=== PATIENT | female | born 1955 | race Caucasian/White ===

== ENCOUNTER → 2023-08-29 | Outpatient (REF) | payer BC, MEDICARE, SELFPAY | LOC: DHSLP | PROVIDERS: ATTENDING PHYSICIAN Internal Medicine Critical Care Medicine; FAMILY PHYSICIAN Family Medicine | DX: G47.61 Periodic limb movement disorder (principal); R06.83 Snoring | CPT/HCPCS: 95810 ==

== ENCOUNTER → 2023-09-01 10:45 | Outpatient (REF) | payer BC, MEDICARE, SELFPAY | LOC: DHCBC/DCA 10:45 | PROVIDERS: ATTENDING PHYSICIAN Internal Medicine Cardiovascular Disease; FAMILY PHYSICIAN Family Medicine | DX: R00.2 Palpitations (principal); R06.02 Shortness of breath; I50.32 Chronic diastolic (congestive) heart failure | CPT/HCPCS: 78452; 93017; A9500; J2785 ==

== ENCOUNTER 2023-10-04 22:39 | Inpatient (IN) | payer BC, MEDICARE, SELFPAY ==
[2023-10-04] VITALS (7 sets, daily range): BP systolic 109–143; BP diastolic 69–81; PULSE 89–92; BMI 33.9; BMI 33.2
--- NOTE | 2023-10-04 18:44 | ED.GENMED ---
History of Present Illness
General
Chief Complaint: Cold/Flu/URI Symptoms
Source: patient
Exam Limitations: none
Time Seen by Provider: 10/04/23 18:11
Nursing documentation reviewed up to this point in time: agreed with
Travel History
Have you had any contact with someone who has COVID-19?: No
Do you have any symptoms of coronavirus? Fever > 100 degrees, chills, cough, shortness of breath, sore throat, loss of taste or smell, muscle aches, or headache?: Yes
Symptoms:: cough
History of Present Illness
History of Present Illness:
68-year-old female with past medical history of CHF hypertension hyperlipidemia, asthma, GERD, remote history of PE not currently anticoagulated for multiple decades. Presented to the emergency department with what initially seemed to be a viral
syndrome 10 days ago with ongoing cough shortness of breath wheezing generalized weakness fatigue body aches. Has had some chest tightness. Denies fevers. Has had some leg swelling bilaterally but always has leg swelling. Has been taking her
diuretic but has had decreased urine output.
Past History
Past History
ED Past Medical History: Arrthythmia (SVT), Asthma, CHF, COPD, GERD, HTN, Hypercholesterolemia, Hypothyroidism, Psychiatric (Anxiety, Depression) and Other (RA,PE, chronic pain syndrome-narcotic dependent. Osteoarthritis. PNA, Sleep apnea, Co2
retention, Urinary retention, PNA)
ED Past Surgical History: Cardiac (Cardiac ablation X 3), , Orthopedic (Right and left total knee replacement, ), Urological (Bladder lift) and Other (bladder lift)
Social History
Tobacco: Former smoker
Alcohol: None
Personal:
Living: with family
Employment: Disabled
Family History
Family History: Other (Noncontributory)
Review of Systems
Review of Systems
Allergies reviewed?: Yes
All Other Systems: ROS reviewed and negative except as documented in HPI and ROS
Phy Exam
Physical Exam
Physical Exam:
GENERAL: Alert , in no apparent distress
EYE: pupils equal and reactive
NECK: Supple, no significant adenopathy.
ENT: o/p clr, mmm.
CARDIAC: Regular rate and rhythm .
LUNGS: Inspiratory and expiratory wheezing diffusely
ABDOMEN: Soft, without focal tenderness, no r/g, no cvat
NEUROLOGICAL: Alert and oriented, no focal neuro deficits
SKIN: Warm and dry, skin intact.
MUSCULOSKELETAL: No edema, well perfused.
PSYCH: Normal and appropriate interaction.
Course
Orders/Labs/Results
Orders:
Orders
10/04/23 18:44
Cardiac Monitoring- Treatment ONCE
Dexamethasone Sod Phosphate [Decadron] 10 mg IV NOW STA
Ipratropium/Albuterol Sulfate [Duoneb] 3 ml INH R NOW STA
10/04/23 18:45
Electrocardiogram (*1) Stat
Reason for Study: Other
Other Reason for Exam: pneumonia
EKG- Treatment ONCE
CR Chest - 2 Views Urgent
Comment:
Reason For Exam: cp cough
10/04/23 18:49
Complete Blood Count/With Diff Urgent
Comprehensive Metabolic Panel Urgent
Creatine Phosphokinase Urgent
Comment: ADD ON
NT-proBNP Urgent
Troponin I Urgent
10/04/23 19:01
Add On- LAB Urgent
Tests Added?: creatine kinase
10/04/23 20:44
Ipratropium/Albuterol Sulfate [Duoneb] 3 ml INH R NOW ONE
10/04/23 21:39
COVID-19 Antigen Urgent
Source: Nasal Swab
Influenza A+B Rapid Molecular Urgent
DOM Source: Nasal Swab
Specimen Description:
Abnormal Lab Results
10/04/23
18:49
RBC 3.52 L 10^6/uL
(4.20-5.40)
Hgb 10.4 L g/dL
(12.0-16.0)
Hct 29.6 L %
(37.0-47.0)
Abs Immat Gran (auto) 0.1 H 10^3/uL
(0-0.05)
Absolute Monos (auto) 0.9 H 10^3/uL
(0.1-0.6)
Immature Gran % 1.3 H %
(0-0.5)
Monocytes % 10.7 H %
(1.7-9.3)
Sodium 128 L mmol/L
(135-145)
Carbon Dioxide 21 L mmol/L
(22-30)
Calcium 7.5 L mg/dl
(8.4-10.2)
Total Protein 5.0 L g/dl
(6.3-8.2)
Albumin 2.6 L g/dl
(3.5-5.0)
10/04/23 18:49
10/04/23 18:49
Vital Signs
Initial and Last Documented VS:
Initial Vital Signs
Pulse Resp BP Pulse Ox
79 20 112/81 98
10/04/23 17:57 10/04/23 17:57 10/04/23 17:57 10/04/23 17:57
Last Documented Vital Signs
Pulse Resp BP Pulse Ox
73 24 125/73 94
10/04/23 21:00 10/04/23 21:00 10/04/23 21:00 10/04/23 20:45
MDM/Problems Addressed
MDM/Problems Addressed:
68-year-old female presenting to the emergency department today with concerns of cough shortness of breath weakness generalized fatigue body aches over the past 10 days. Here she has diffuse wheezing vital signs otherwise are normal afebrile normal
blood pressure and pulse ox. Plan for additional evaluation considering her history of heart disease as well. Given steroids and DuoNeb. Patient reassessed claims that she feels slightly better she was walked pulse ox dropping into the 80s
patient appeared very short of breath pulse ox improving to the mid 90s on room air thereafter. Otherwise troponin is normal EKG unchanged BMP without significant elevation symptoms appear most consistent with likely reactive airway asthma to what
appears to be likely URI 10 days ago. Plan to admit due to hypoxemia.
*Critical Care Note
Total Time (30-74mins, 75-104mins- exclusive of procedures): Not Applicable
ED Attending Note
-
Portions of this chart may have been created with voice recognition software.� Occasional wrong word or��sound alike� substitutions may have occurred due to the inherent limitations of voice recognition software.
Discharge Plan
Departure
Patient Disposition: Admit
Date of Disposition: 10/04/23
Time of Disposition: 21:54
Admit to: Med/Surg
Admit to doctor: Jovany
Presentation/result/management discussed w/ accepting MD/DO: Hospitalist
Patient with high blood pressure during this ER visit?: No
Condition: Good
Covid-19: Not Applicable
Discharge Problem:
Asthma, Hypoxemia
Prescriptions:
No Action
aspirin 325 MG tablet,delayed release (DR/EC)
325 mg PO DAILY Qty: 0 0RF
duloxetine 60 MG capsule,delayed release(DR/EC)
60 mg PO BID
quetiapine [Seroquel XR] 400 MG tablet extended release 24 hr
400 mg PO HS
lovastatin 20 MG tablet
20 mg PO DAILY
pantoprazole 40 MG tablet,delayed release (DR/EC)
40 mg PO DAILY
clonazepam 1 MG tablet
1 mg PO QID
Patient Comments:
06/06/2023: last filled 04/28/23, 120 tabs for 30 days from [facility]
benzonatate 200 mg capsule
200 mg PO TIDPRN PRN (Reason: cough)
levothyroxine 125 mcg tablet
125 mcg PO DAILY AT 0700
metoprolol tartrate 50 mg tablet
25 mg PO BID
levalbuterol HCl 1.25 mg/3 mL Solution For Nebulization
1.25 mg INHALATION R Q8HPRN PRN (Reason: sob/wheezing)
levalbuterol tartrate [Xopenex HFA] 45 mcg/actuation Hfa Aerosol Inhaler
2 inh INHALATION R Q8HPRN PRN (Reason: sob/wheezing)
budesonide-formoterol [Symbicort] 160-4.5 mcg/actuation HFA aerosol inhaler
2 puff INHALATION R BID
Xtampza ER 36 mg cap,sprinkl,ER12hr(DONT CRUSH)
72 mg PO BID@
Patient Comments:
06/06/2023: last filled 05/16/23, 120 tabs for 30 days from [facility]
tamsulosin 0.4 mg Capsule
0.4 mg PO DAILY Qty: 30 0RF
furosemide 20 mg Tablet
20 mg PO DAILY Qty: 30 0RF
amoxicillin-pot clavulanate 875-125 mg Tablet
1 tab PO Q12 Qty: 5 0RF
prednisone 20 mg tablet
40 mg PO DAILY Qty: 6 0RF
potassium chloride 20 mEq tablet extended release
20 meq PO DAILY Qty: 10 0RF
cephalexin 500 mg tablet
500 mg PO Q8H 5 Days Qty: 15 0RF
tamsulosin [Flomax] 0.4 mg capsule
0.4 mg PO HS Qty: 30 0RF
potassium chloride 20 mEq packet
20 meq PO DAILY Qty: 10 0RF
Referrals:
Demi Ramirez MD [Family Provider] -
Interventions
Interventions:
*General Assessment Last Done: 10/04/23 18:58
*Neglect/Abuse Screening Last Done: 10/04/23 18:58
ED- Fall Risk Assessment Last Done: 10/04/23 19:00
*ED COVID-19 Vaccine History Last Done: 10/04/23 18:58
ED- Pulmonary Assessment Last Done: 10/04/23 19:00
[2023-10-04] MEDS: DECADRON 10 MG IV (18:52)
[2023-10-04] MEDS: DUONEB 3 ML INH ×2 (18:52→20:49)
[2023-10-04 19:01] LABS: % Basophils 0.2 % (0-2); % Immature Granulocytes 1.3 % (0-0.5); % Lymphocytes 34.7 % (20.5-51.1); % Monocytes 10.7 % (1.7-9.3); % Neutrophils 51.1 % (42.2-75.2); Absolute Eosinophils 0.2 10^3/uL (0-0.7); Absolute Immature Granulocytes 0.1 10^3/uL (0-0.05); Absolute Lymphocytes 2.8 10^3/uL (1.2-3.4); Absolute Monocytes 0.9 10^3/uL (0.1-0.6); Absolute Neutrophils 4.2 10^3/uL (1.4-6.5); Hematocrit 29.6 % (37.0-47.0); Hemoglobin 10.4 g/dL (12.0-16.0); Mean Corp Hgb Conc. 35.1 g/dL (33.0-37.0); Mean Corpuscular Hgb 29.5 pg (27.0-31.0); Mean Corpuscular Volume 84.1 fL (81.0-99.0); Mean Platelet Volume 9.4 fL (7.4-10.4); Nucleated Red Blood Cells % 0 %; Platelet Count 216 10^3/uL (130-400); Red Blood Cell Count 3.52 10^6/uL (4.20-5.40); Red Cell Dist. Width 13.7 % (11.5-14.5); White Blood Cell Count 8.2 10^3/uL (4.8-10.8)
[2023-10-04 19:14] LABS: ALT (SGPT) 12 U/L (0-35); AST (SGOT) 14 U/L (14-36); Albumin 2.6 g/dl (3.5-5.0); Alkaline Phosphatase 81 U/L (38-126); Blood Urea Nitrogen 14 mg/dl (7-17); Calcium 7.5 mg/dl (8.4-10.2); Carbon Dioxide 21 mmol/L (22-30); Chloride 101 mmol/L (98-107); Estimated Creatinine Clearance 109 ml/min; Glucose 77 mg/dl (70-99); Potassium 3.6 mmol/L (3.5-5.1); Sodium 128 mmol/L (135-145); Total Bilirubin 0.3 mg/dl (0.2-1.3); eGFR > 60.00
[2023-10-04 19:19] LABS: Creatine Phosphokinase 62 U/L (30-135)
[2023-10-04 19:25] LABS: NT-proBNP 181 pg/ml; Troponin I < 0.012 ng/ml
--- NOTE | 2023-10-04 21:51 | HPS.HSE ---
Family Physician
-
Family Physician: Demi Ramirez MD
Chief Complaint
-
Cough / SOB
History of Present Illness
Patient is a 68y F with PMH significant for asthma, CHF, hypertension and RA who presents to ED complaining of cough and SOB. Patient states that her nephew came to visit about 2 weeks ago and was ill with respiratory symptoms. She started to
have cough and chest congestion about 10 days ago. Patient reports cough that has been largely non-productive. No sore throat. No fevers / chills. Some chest tightness and audible wheezing.
A week ago she had a televisit with her PCP and was prescribed Medrol dose pack. She states that she has noted no improvement.
Patient has been using her usual inhalers including rescue Xopenex at home - with only temporary improvement in her symptoms.
Medical History
Past Medical History
Past Medical History: Reports Other
Additional Past Medical History:
Asthma
Hypertension
Rheumatoid Arthritis
Chronic HFpEF
SVT s/p Ablation
Pulmonary Embolism
PIETER
Obesity
Past Surgical History: Reports Other
Additional Past Surgical History:
SVT Ablation x 3
Bilateral TKA
Bladder Sling
Social History
Tobacco: Non-smoker
Alcohol: None
Drug: None
Family History
Family History: Other (Father / Brother: Severe Asthma)
Allergies / Home Medications
Allergies reflects when Allergies were last updated in [facility].
Home Medications with original date entered in [facility]
Allergy/Medication List:
Allergies
Allergy/AdvReac Type Severity Reaction Status Date / Time
albuterol [Albuterol] Allergy SVT Verified 10/04/23 17:57
codeine [Codeine] Allergy Patient Verified 10/04/23 17:57
Denies
Allergy
codeine phosphate Allergy Patient Verified 10/04/23 17:57
[From Tylenol-Codeine #3] Denies
Allergy
enoxaparin sodium Allergy Large Verified 10/04/23 17:57
[From Lovenox] Hematoma @
surgical
site
grass pollen Allergy wheezing,SNEEZING, Verified 10/04/23 17:57
itchy eyes
house dust Allergy wheezing,SNEEZING, Verified 10/04/23 17:57
itchy eyes
mold Allergy wheezing,SNEEZING, Verified 10/04/23 17:57
itchy eyes
pollen extracts Allergy wheezing,SNEEZING, Verified 10/04/23 17:57
itchy eyes
Home Medications
duloxetine 60 mg capsule,delayed release 60 mg PO BID Mental Health/Anxiety 10/02/15
quetiapine 400 mg tablet,extended release 24 hr (Seroquel XR) 400 mg PO HS Mental Health/Anxiety 10/02/15
lovastatin 20 mg tablet 20 mg PO DAILY High Cholesterol 11/02/15
clonazepam 1 mg tablet 1 mg PO QID Mental Health/Anxiety 02/15/18
pantoprazole 40 mg tablet,delayed release 40 mg PO DAILY Gastrointestinal Issue 02/15/18
benzonatate 200 mg capsule 200 mg PO TIDPRN PRN cough 06/06/23
levalbuterol HCl 1.25 mg/3 mL solution for nebulization 1.25 mg inhalation R Q8HPRN PRN sob/wheezing 06/06/23
levalbuterol tartrate 45 mcg/actuation aerosol inhaler (Xopenex HFA) 2 inh inhalation R Q8HPRN PRN sob/wheezing 06/06/23
metoprolol tartrate 50 mg tablet 25 mg PO BID Heart Disease/Condition 06/06/23
oxycodone myristate 36 mg capsule sprinkle extended release 12hr(DON'T CRUSH) (Xtampza ER) 72 mg PO BID@0400,2000 Pain 06/06/23
furosemide 20 mg tablet 20 mg PO DAILY #30 tabs 06/11/23
tamsulosin 0.4 mg capsule (Flomax) 0.4 mg PO HS Urinary issue #30 caps 07/24/23
aspirin 81 mg tablet,delayed release 81 mg PO DAILY 10/04/23
budesonide 160 mcg-glycopyr 9 mcg-formot 4.8 mcg/actuation HFA inhaler (Breztri Aerosphere) 1 inh inhalation R DAILY 10/04/23
ibuprofen 800 mg tablet 800 mg PO Q8H PRN mild pain 10/04/23
levothyroxine 112 mcg tablet 112 mcg PO DAILY 10/04/23
potassium chloride 20 mEq tablet,extended release(part/cryst) 20 meq PO DAILY 10/04/23
Review of Systems
-
History Source: Patient
A 12 point ROS was completed and negative except as noted: Yes
Constitutional: Reports Fatigue; Denies Fever or Chills
EENT: Denies Sore Throat
Respiratory: Reports Cough and Trouble Breathing
Cardiac: Denies Chest Pain, Diaphoresis or Palpitations
Abdomen/GI: Reports Diarrhea; Denies Abdominal Pain, Nausea or Vomiting
: Denies Dysuria or Frequency
Musculoskeletal: Denies Joint Pain or Edema
Neurological: Reports Headache; Denies Dizzy
Psych: Denies Depression or Anxiety
Physical Exam
Vital Signs
Vital Signs
Pulse Resp BP Pulse Ox
73 24 125/73 94
10/04/23 21:00 10/04/23 21:00 10/04/23 21:00 10/04/23 20:45
Physical Exam
General: Other (68y F in no acute distress.)
HEENT: Moist mucous membranes and PERRLA
Respiratory: Other (Coarse breath sounds throughout. No significant improvement with cough. Scattered wheezing. No appreciable rales.)
Cardiac: S1/S2 and Regular Rhythm; No Murmur
GI: Soft, Non Tender, Non Distended and Normal Bowel Sounds
Musculoskeletal: No Clubbing, No Cyanosis and No Edema
Neuro: AO x 3
Laboratory Results
-
10/04/23 18:49
10/04/23 18:49
Laboratory Results
Total Bilirubin 0.3 mg/dl (0.2-1.3) 10/04/23 18:49
AST 14 U/L (14-36) 10/04/23 18:49
ALT 12 U/L (0-35) 10/04/23 18:49
Alkaline Phosphatase 81 U/L (38-126) 10/04/23 18:49
Troponin I < 0.012 ng/ml 10/04/23 18:49
Impression/Plan
-
A/P: Patient is a 68y F with PMH significant for asthma, HTN and CHF who presents to ED complaining of cough and SOB x 10 days.
Acute Asthmatic Bronchitis
- Admit for further evaluation and treatment.
- Continue IV steroids, ICS, nebs, O2 as needed
- Abx with doxycycline for now.
- Follow for clinical improvement.
Chronic HFpEF
- Stable. No evidence of volume overload on exam.
- Continue current Lasix dosing.
- Follow for any changes.
Hyponatremia
- Na = 128 on chronic Lasix.
- Does not appear grossly volume overloaded.
- Continue current Lasix.
- Fluid restriction.
- Follow for improvement.
Hypothyroidism
- Continue current T4 replacement.
Anxiety / Depression
- Stable. Continue current psychotropic med regimen.
GERD
- Stable. Continue PPI.
DVT Prophylaxis: Lovenox
Code Status: Full
[2023-10-04 22:18] LABS: COVID-19 Antigen Negative (Negative)
[2023-10-04] MEDS: DECADRON 4 MG IV (23:55)
[2023-10-04] MEDS: VIBRAMYCIN 100 MG PO (23:55)
[2023-10-04] MEDS: TESSALON PERLES 200 MG PO (23:56)
[2023-10-05 03:46] VITALS: BP 155/90
[2023-10-05 04:55] LABS: Hematocrit 34.4 % (37.0-47.0); Hemoglobin 11.6 g/dL (12.0-16.0); Mean Corp Hgb Conc. 33.7 g/dL (33.0-37.0); Mean Corpuscular Hgb 28.9 pg (27.0-31.0); Mean Corpuscular Volume 85.6 fL (81.0-99.0); Mean Platelet Volume 9.9 fL (7.4-10.4); Platelet Count 257 10^3/uL (130-400); Red Blood Cell Count 4.02 10^6/uL (4.20-5.40); Red Cell Dist. Width 13.5 % (11.5-14.5)
[2023-10-05 05:10] VITALS: BMI 32.5
[2023-10-05 05:41] LABS: Blood Urea Nitrogen 13 mg/dl (7-17); Calcium 9.5 mg/dl (8.4-10.2); Carbon Dioxide 21 mmol/L (22-30); Chloride 98 mmol/L (98-107); Estimated Creatinine Clearance 107 ml/min; Glucose 152 mg/dl (70-99); Potassium 4.8 mmol/L (3.5-5.1); Sodium 132 mmol/L (135-145); eGFR > 60.00
[2023-10-05] MEDS: DECADRON 4 MG IV ×3 (06:36→22:58)
[2023-10-05 07:59] VITALS: BP 138/102; BP 149/97; BP 156/90; PULSE 100; PULSE 89; PULSE 95
[2023-10-05] MEDS: XOPENEX 1.25 MG INHALANT SOLUTION INH ×3 (08:02→20:30)
[2023-10-05] MEDS: SYMBICORT 160/4.5 MCG INHALER 2 PUFF INH ×2 (08:03→20:30)
[2023-10-05] MEDS: ASPIR LOW (ENTERIC COATED) 81 MG PO (09:09)
[2023-10-05] MEDS: LASIX 20 MG PO (09:09)
[2023-10-05] MEDS: CYMBALTA DELAYED RELEASE 60 MG PO ×2 (09:09→21:41)
[2023-10-05] MEDS: PROTONIX 40 MG PO (09:09)
[2023-10-05] MEDS: VIBRAMYCIN 100 MG PO ×2 (09:09→21:40)
[2023-10-05] MEDS: KCL 20 MEQ PO (09:09)
[2023-10-05] MEDS: LIPITOR 10 MG PO (09:09)
[2023-10-05] MEDS: KLONOPIN 1 MG PO ×4 (09:10→21:42)
[2023-10-05] MEDS: LOPRESSOR 25 MG PO ×2 (09:10→21:40)
[2023-10-05] MEDS: SYNTHROID 112 MCG PO (09:11)
--- NOTE | 2023-10-05 09:52 | PTOTSP ---
pt up in room ad rajani. pt capable of completing functional tasks without difficulty, reports being up in bathroom in room without assistance. no acute OT needs identified, will sign off.
--- NOTE | 2023-10-05 11:48 | PTOTSP ---
Received order for PT from the ED and reviewed chart. S/w pt who reports she has been ambulating independently back and forth to the bathroom multiple times and does not need assistance, does not need PT, and does not need assistive device. Agreed
to sign off.
--- NOTE | 2023-10-05 13:14 | W.PN.HOSP.TC ---
Today's Communication/Plan
-
relax OFR
continue steroids/Doxy
possibly DC in 24 hours
Assessment / Plan
Assessment / Plan
Assessment:
Acute Asthmatic Bronchitis
- continue IV Steroids
- continue nebs
- continue Doxy, day 2
- clinically improving, not on O2
Chronic anemia
Chronic HFpEF
- Stable. No evidence of volume overload on exam.
- Continue current Lasix dosing.
- Follow for any changes.
Hyponatremia
- Na 132
- Does not appear grossly volume overloaded.
- Continue current Lasix.
- Fluid restriction - relax to 1500 cc
- Follow for improvement.
Hypothyroidism
- Continue current T4 replacement.
Anxiety / Depression
- Stable. Continue current psychotropic med regimen.
GERD
- Stable. Continue PPI.
DVT Prophylaxis: Lovenox
Code Status: Full
Anticipated Discharge: Within 24 hours
Subjective/Interval History
-
Date of Service: October 05, 2023
she feels improved, less wheezing and SOB
requesting relaxation of OFR
Objective Data
-
Labs:
Laboratory Results
10/05/23
04:20
WBC 7.0
Hgb 11.6 L
Hct 34.4 L
Plt Count 257
Sodium 132 L
Potassium 4.8 D
Chloride 98
Carbon Dioxide 21 L
BUN 13
Creatinine 0.6
Glucose 152 H
Calcium 9.5 D
Vital Signs:
Vital Signs
Temp Pulse Resp BP Pulse Ox
98.2 F 82 14 156/90 96
10/05/23 07:59 10/05/23 13:05 10/05/23 13:05 10/05/23 09:10 03/27/24 09:52
I&O
10/04/23 10/05/23 10/06/23
06:59 06:59 06:59
Intake Total 480 / 480
Balance 480 / 480
Physical Exam
-
General: No Apparent Distress
HEENT: Normocephalic and Atraumatic
Respiratory: Wheezes and Non Labored Respirations; Negative Rales
Cardiac: Regular Rhythm and S1/S2
GI: Soft and Nontender
Neuro: AO x 3
Psych: Calm
Data Reviewed
-
Total Time Spent with Patient (in minutes): 45
Labs: Labs Reviewed by me
--- NOTE | 2023-10-05 15:18 | CM ---
Met with patient at bedside; initial assessment completed
Pharmacy verified: [facility], [facility]
Patient reported she lives with spouse, son and daughter in a split level home; 5 steps to enter; 5 steps between floors; full bath on main level and powder room in her bedroom
DME: grab bars, Nebulizer
PLOF: reported she is independent with ambulation and ADLs; sometimes she has SOB going up the stairs; drives
SNF/Rehab/Home Care utilization: home care services with [facility] in May 2023 after hospitalization
Transportation: family (spouse or daughter) will provide ride home
IMM on the chart 10/04/2023
Plan: Home O2 assessment in the AM prior to discharge to home; no oxygen vendor preference identified
[2023-10-05 15:25] VITALS: BP 137/80
--- NOTE | 2023-10-05 18:06 | PTCARENOTE ---
pt refused evening lovenox dose and states she is allergic. MD made aware. pt refused knee high SCDS despite education on blood clot prevention. MD also made aware of this.
[2023-10-05 19:27] VITALS: BP 118/79; BP 122/81; BP 133/82; PULSE 90; PULSE 92; PULSE 97
[2023-10-05] MEDS: NON-FORMULARY ITEM 400 MG PO (21:42)
[2023-10-05] MEDS: FLOMAX 0.400000000000000022 MG PO (21:42)
[2023-10-05] MEDS: MUCINEX 600 MG PO (21:42)
[2023-10-05 23:27] VITALS: BP 130/76
[2023-10-06 03:24] VITALS: BP 129/74
[2023-10-06 06:00] VITALS: BMI 31.6
[2023-10-06 06:14] LABS: Hematocrit 33.1 % (37.0-47.0); Hemoglobin 11.5 g/dL (12.0-16.0); Mean Corp Hgb Conc. 34.7 g/dL (33.0-37.0); Mean Corpuscular Hgb 29.6 pg (27.0-31.0); Mean Corpuscular Volume 85.3 fL (81.0-99.0); Platelet Count 302 10^3/uL (130-400); Red Blood Cell Count 3.88 10^6/uL (4.20-5.40); Red Cell Dist. Width 13.9 % (11.5-14.5); White Blood Cell Count 11.1 10^3/uL (4.8-10.8)
[2023-10-06] MEDS: DECADRON 4 MG IV (06:36)
[2023-10-06 06:45] LABS: Blood Urea Nitrogen 22 mg/dl (7-17); Calcium 9.6 mg/dl (8.4-10.2); Carbon Dioxide 26 mmol/L (22-30); Chloride 98 mmol/L (98-107); Estimated Creatinine Clearance 106 ml/min; Glucose 118 mg/dl (70-99); Potassium 4.6 mmol/L (3.5-5.1); Sodium 134 mmol/L (135-145); eGFR > 60.00
[2023-10-06] MEDS: XOPENEX 1.25 MG INHALANT SOLUTION INH (07:20)
[2023-10-06] MEDS: SYMBICORT 160/4.5 MCG INHALER 2 PUFF INH (07:20)
[2023-10-06 07:45] VITALS: BP 126/72; BP 126/73; BP 134/76; PULSE 70; PULSE 72
[2023-10-06] MEDS: PROTONIX 40 MG PO (08:27)
[2023-10-06] MEDS: KLONOPIN 1 MG PO ×2 (08:27→13:27)
[2023-10-06] MEDS: LIPITOR 10 MG PO (08:27)
[2023-10-06] MEDS: LASIX 20 MG PO (08:27)
[2023-10-06] MEDS: LOPRESSOR 25 MG PO (08:27)
[2023-10-06] MEDS: KCL 20 MEQ PO (08:28)
[2023-10-06] MEDS: ASPIR LOW (ENTERIC COATED) 81 MG PO (08:28)
[2023-10-06] MEDS: MUCINEX 600 MG PO (08:28)
[2023-10-06] MEDS: VIBRAMYCIN 100 MG PO (08:28)
[2023-10-06] MEDS: CYMBALTA DELAYED RELEASE 60 MG PO (08:28)
[2023-10-06] MEDS: SYNTHROID 112 MCG PO (08:29)
--- NOTE | 2023-10-06 11:24 | W.PN.HOSP.TC ---
Today's Communication/Plan
-
dc to home
Assessment / Plan
Assessment / Plan
Assessment:
Acute Asthmatic Bronchitis
- much improved
- dc on steroid taper x 10 days
- complete doxy coures at home
- continue nebs prn at home
- OP f/u Pulm
Chronic anemia
Chronic HFpEF
- Stable. No evidence of volume overload on exam.
- Continue current Lasix dosing.
- Follow for any changes.
Hyponatremia
- Na 134 today
- Does not appear grossly volume overloaded.
- Continue current Lasix.
- Fluid restriction - relax to 1800 cc
Hypothyroidism
- Continue current T4 replacement.
Anxiety / Depression
- Stable. Continue current psychotropic med regimen.
GERD
- Stable. Continue PPI.
DVT Prophylaxis: Lovenox
Code Status: Full
More than 30 minutes spent in discharge including
Final examination of the patient
Summarizing hospital stay
Instructions for continuing care to all relevant caregivers
Preparation of discharge records, prescriptions, and referral forms
Total time spent (in minutes): 41
Anticipated Discharge: Today
Subjective/Interval History
-
Date of Service: October 06, 2023
feels improved, denies any complaints at present
Objective Data
-
Labs:
Laboratory Results
10/06/23
05:06
WBC 11.1 H
Hgb 11.5 L
Hct 33.1 L
Plt Count 302
Sodium 134 L
Potassium 4.6
Chloride 98
Carbon Dioxide 26
BUN 22 H
Creatinine 0.6
Glucose 118 H
Calcium 9.6
Vital Signs:
Vital Signs
Temp Pulse Resp BP Pulse Ox
98.0 F 70 14 126/72 95
10/06/23 07:45 10/06/23 07:45 10/06/23 07:45 10/06/23 08:27 10/06/23 07:45
I&O
10/05/23 10/06/23 10/07/23
06:59 06:59 06:59
Intake Total 480 / 480 1020 / 1020
Balance 480 / 480 1020 / 1020
Physical Exam
-
General: No Apparent Distress
HEENT: Normocephalic and Atraumatic
Respiratory: Negative Wheezes or Rales
Cardiac: Regular Rhythm and S1/S2
GI: Soft and Nontender
Genito-urinary: No Costovertebral Tender
Musculoskeletal: No Edema
Neuro: AO x 3
Psych: Calm
Data Reviewed
-
Total Time Spent with Patient (in minutes): 41
Labs: Labs Reviewed by me
--- NOTE | 2023-10-06 11:32 | W.DS.TRANS ---
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
-
Discharge Instructions:
Discharge Diagnosis/Procedures acute asthmatic bronchitis
Diet 2 Gram Sodium,Restrict fluids to 64 oz
Activity As tolerated
Bathing Restrictions None
Instructions:
Stand-Alone Forms:
Changes to Home Medications: No
Discharge Medications:
DC Medications w/original date entered in [facility]
duloxetine 60 mg capsule,delayed release 60 mg PO BID Mental Health/Anxiety 10/02/15
quetiapine 400 mg tablet,extended release 24 hr (Seroquel XR) 400 mg PO HS Mental Health/Anxiety 10/02/15
lovastatin 20 mg tablet 20 mg PO DAILY High Cholesterol 11/02/15
clonazepam 1 mg tablet 1 mg PO QID Mental Health/Anxiety 02/15/18
pantoprazole 40 mg tablet,delayed release 40 mg PO DAILY Gastrointestinal Issue 02/15/18
benzonatate 200 mg capsule 200 mg PO TIDPRN PRN cough 06/06/23
levalbuterol HCl 1.25 mg/3 mL solution for nebulization 1.25 mg inhalation R Q8HPRN PRN sob/wheezing 06/06/23
levalbuterol tartrate 45 mcg/actuation aerosol inhaler (Xopenex HFA) 2 inh inhalation R Q8HPRN PRN sob/wheezing 06/06/23
metoprolol tartrate 50 mg tablet 25 mg PO BID Heart Disease/Condition 06/06/23
furosemide 20 mg tablet 20 mg PO DAILY #30 tabs 06/11/23
tamsulosin 0.4 mg capsule (Flomax) 0.4 mg PO HS Urinary issue #30 caps 07/24/23
aspirin 81 mg tablet,delayed release 81 mg PO DAILY Blood Clot Prevention/Tx 10/04/23
budesonide-formoterol HFA 160 mcg-4.5 mcg/actuation aerosol inhaler (Symbicort) 2 puff inhalation R BID Supplement 10/04/23
levothyroxine 112 mcg tablet 112 mcg PO DAILY Thyroid 10/04/23
potassium chloride 20 mEq tablet,extended release(part/cryst) 20 meq PO DAILY Electrolyte Repletion 10/04/23
doxycycline hyclate 100 mg capsule 100 mg PO Q12 #6 caps 10/06/23
guaifenesin 600 mg tablet, extended release 12 hr 600 mg PO Q12 #10 tabs 10/06/23
prednisone 10 mg tablet 10 mg PO DIRECTED #30 tabs 10/06/23
Home Medication Changes
Pending Results: No
Total time spent discharging patient (in min): 42
[2023-10-06 11:40] VITALS: BP 104/48
--- NOTE | 2023-10-06 13:23 | CM ---
Reviewed the chart notes. Patient is ready for discharge today to home with no needs identified. Patient's spouse will provide transportation. CM continues to be available to patient/family and is monitoring medical plan for needs at discharge.
Plan: Discharge to home with no needs.
[2023-10-06 20:09] LABS: Hepatitis C Antibody Negative (Negative)
== END 2023-10-06 13:49 | disposition home or self-care (01) | DRG 202 ==
LOC: 2 NORTH 22:39
PROVIDERS: Physician Assistant; ADMITTING PHYSICIAN Hospitalist; ATTENDING PHYSICIAN Internal Medicine; EMERGENCY PHYSICIAN Emergency Medicine; FAMILY PHYSICIAN Family Medicine
DX: J45.909 Unspecified asthma, uncomplicated (principal); E87.1 Hypo-osmolality and hyponatremia; I50.32 Chronic diastolic (congestive) heart failure; Z87.891 Personal history of nicotine dependence; I11.0 Hypertensive heart disease with heart failure; E03.9 Hypothyroidism, unspecified; F32.A Depression, unspecified; F41.9 Anxiety disorder, unspecified; K21.9 Gastro-esophageal reflux disease without esophagitis; D64.9 Anemia, unspecified; Z11.52 Encounter for screening for COVID-19
CPT/HCPCS: 71046; 80048; 80053; 82550; 83880; 84484; 85025; 85027; 86803; 87502; 87811; 93005; 94640; 94667; 94668; 96374; 99285

== ENCOUNTER → 2023-12-22 07:13 | Outpatient (REF) | payer BC, MEDICARE, SELFPAY | LOC: HWRCS 07:13 | PROVIDERS: ATTENDING PHYSICIAN Internal Medicine Cardiovascular Disease; FAMILY PHYSICIAN Family Medicine | DX: I50.32 Chronic diastolic (congestive) heart failure (principal) | CPT/HCPCS: 93306 ==

== ENCOUNTER → 2024-06-08 06:56 | Outpatient (REF) | payer BC, SELFPAY | LOC: HWRCS 06:56 | PROVIDERS: FAMILY PHYSICIAN Family Medicine | DX: I50.30 Unspecified diastolic (congestive) heart failure (principal) | CPT/HCPCS: 93306 ==

== ENCOUNTER 2025-02-01 05:13 | Emergency (ER) | payer BC, MEDICARE, SELFPAY ==
[2025-02-01 05:16] VITALS: BP 80/51
[2025-02-01 05:28] VITALS: BP 103/69
[2025-02-01 05:30] VITALS: BP 103/88
[2025-02-01 06:07] VITALS: BP 106/76
[2025-02-01 06:27] LABS: Hematocrit 35.9 % (37.0-47.0); Hemoglobin 12.2 g/dL (12.0-16.0); Mean Corp Hgb Conc. 34.0 g/dL (33.0-37.0); Mean Corpuscular Volume 89.5 fL (81.0-99.0); Nucleated Red Blood Cells % 0 %; Platelet Count 234 10^3/uL (130-400); Red Cell Dist. Width 13.8 % (11.5-14.5)
[2025-02-01 06:30] VITALS: BP 108/65
[2025-02-01 06:37] LABS: INR 1.04; PT 14.1 Sec (11.4-14.6)
[2025-02-01 06:54] LABS: ALT (SGPT) 18 U/L (0-35); AST (SGOT) 17 U/L (14-36); Albumin 3.5 g/dl (3.5-5.0); Alkaline Phosphatase 65 U/L (38-126); Blood Urea Nitrogen 18 mg/dl (7-17); Calcium 9.1 mg/dl (8.4-10.2); Carbon Dioxide 27 mmol/L (22-30); Chloride 108 mmol/L (98-107); Glucose 82 mg/dl (70-99); Potassium 4.0 mmol/L (3.5-5.1); Sodium 140 mmol/L (135-145); Total Protein 6.2 g/dl (6.3-8.2); eGFR > 60.00
--- NOTE | 2025-02-01 07:26 | ED.GENMED ---
Addendum entered and electronically signed by Hector Flores MD 02/01/25 13:05:
X-ray shows mildly displaced fractures of the right fifth metatarsal. Patient placed in a posterior short leg splint by me and provide crutches. Referral to Dr. Johnson for orthopedist.
Original Note:
History of Present Illness
General
Chief Complaint: Fall
Source: patient and family
Exam Limitations: none
Time Seen by Provider: 02/01/25 05:25
Nursing documentation reviewed up to this point in time: agreed with
History of Present Illness
History of Present Illness:
Note:
CHIEF COMPLAINT(S)
Fall with subsequent knee and chest pain.
HISTORY OF PRESENT ILLNESS
The patient is a 69-year-old female who reports falling down a flight of steps approximately one hour prior to presentation. She describes chest discomfort, stating, 'I stretch my chest,' indicating potential strain or injury from the fall.
Additionally, she reports her knee is bruised and painful, mentioning, 'My knee is all at school' which may be interpreted as swollen. The patient denies any headache, blurry vision, or confusion following the fall. There is no pain reported in the
neck, specifically denying any discomfort at the back of the neck.
REVIEW OF SYSTEMS
- Neurological: Denies headache, blurry vision, or confusion.
- Musculoskeletal: Reports bruising and swelling in the knee. Complains of chest discomfort following a fall.
PHYSICAL EXAM
General: Alert, no acute distress.
Skin: Warm, dry.
Head: Normocephalic, atraumatic.
Neck: Supple, trachea midline, denies pain.
Eye Ears, Nose, Mouth and Throat: Oral mucosa moist. No nasal hematoma no septal hematoma dentition is intact oropharynx is clear there is some dried blood. No hemotympanum.
Cardiovascular: Normal peripheral perfusion, No edema.
Respiratory: Respirations are non-labored.
Gastrointestinal: Abdomen nondistended.
Back: Normal range of motion, Normal alignment.
Musculoskeletal: Reports discomfort in the chest and swelling/bruising of the knee following a fall. Normal range of motion otherwise. Tenderness to palpation of the right knee and ankle. Patient able to ambulate on it.
Neurological: Alert and oriented to person, place, time, and situation, No focal neurological deficit observed.
Psychiatric: Cooperative, appropriate mood & affect.
PLAN
1. Evaluate the extent of injury through imaging studies, such as X-ray, especially for the affected knee and chest area.
2. Pain management as needed for chest and knee discomfort.
3. Monitor for any delayed symptoms post-fall, such as increased swelling or persistent pain.
DIFFERENTIAL DIAGNOSIS
The Differential Diagnosis includes, in no particular order and is not limited to:
1. Contusion (knee or chest)
2. Fracture (especially concerning the knee or ribs)
3. Sprain (musculoskeletal injury due to fall)
4. Muscle strain
5. Hematoma
6. Bruising
7. Ligament injury
8. Bursitis from trauma
9. Joint effusion
10. Subcutaneous hematoma
CARE-UPDATE
02/01/25 - 07:21
CT scan reveals an acute displaced nasal bone fracture with deformity. Physical exam shows ecchymosis and dry blood on lips, but no septal hematoma or bilateral hemotympanum. TT Head shows no intracranial hemorrhage or displaced skull fracture.
Patient to be ambulated and follow up with plastic surgery. Discharge diagnosis: fall resulting in acute nasal bone fracture.
Disposition:
SUMMARY OF ENCOUNTER
A 69-year-old female presented after falling down a flight of steps, resulting in a facial injury, specifically mentioning swelling and bruising of the knee, and chest discomfort. CT scans of the head, cervical spine, and chest were negative for
significant findings. However, a CT scan of the facial bones revealed an acute nasal bone fracture. The management included pain control and arrangements for follow-up with a plastic surgeon to address the nasal fracture.
DISPOSITION
Discharge after evaluation and initial management.
ASSESSMENT
Acute nasal bone fracture as a result of a fall.
PLAN
1. Follow-up with plastic surgery for further management of the nasal bone fracture.
2. Pain management using [id number] analgesics or as prescribed by the patients primary care provider.
3. Monitor for any delayed symptoms such as increased knee swelling or persistent pain, advising to return if symptoms worsen.
INDEPENDENT REVIEW OF LABS AND INTERPRETATION OF TESTS
- My independent interpretation of CT head is negative for intracranial hemorrhage or displaced skull fracture.
- My independent interpretation of the CT cervical spine is negative for cervical spine injury.
- My independent interpretation of the CT chest is negative for rib fractures or chest wall injury.
- My independent interpretation of the CT facial bones reveals an acute nasal bone fracture.
FOLLOW-UP INSTRUCTIONS
Please arrange a follow-up visit with a plastic surgeon as soon as possible to address the nasal bone fracture.
MEDICAL DECISION MAKING
-Complexity of Data Reviewed:
Chronic conditions affecting care included consideration for mechanical fall due to potential balance issues. Differential diagnosis considered includes contusion, fracture, sprain, muscle strain, hematoma, bruising, ligament injury, bursitis from
trauma, joint effusion, and subcutaneous hematoma.
-Data:
Category 1: The following imaging tests were considered to assess potential injuries: CT of the head, cervical spine, and chest, which were negative; CT of facial bones confirmed an acute nasal bone fracture.
-Risk:
Consideration of Admission/Observation: Escalation of care including admission/observation was considered given the complexity and risk of the patients presenting complaint, exam findings, and underlying comorbidities. However, ultimately I feel the
patient is safe for outpatient management with close follow-up. Reasoning: Work-up reassuring, does not reveal any acute life/organ-threatening processes, patients symptoms well controlled upon reevaluation, reexamination is reassuring, vitals are
stable, patient agreeable with discharge, reliable for follow-up.
DIAGNOSIS
- Acute nasal bone fracture (ICD-10: S02.2XXA)
Past History
Past History
ED Past Medical History: Arrthythmia (SVT), Asthma, CHF, COPD, GERD, HTN, Hypercholesterolemia, Hypothyroidism, Psychiatric (Anxiety, Depression) and Other (RA,PE, chronic pain syndrome-narcotic dependent. Osteoarthritis. PNA, Sleep apnea, Co2
retention, Urinary retention, PNA)
ED Past Surgical History: Cardiac (Cardiac ablation X 3), , Orthopedic (Right and left total knee replacement, ), Urological (Bladder lift) and Other (bladder lift)
Social History
Tobacco: Former smoker
Alcohol: None
Personal:
Living: with family
Employment: Disabled
Family History
Family History: Other (Noncontributory)
Phy Exam
Physical Exam
Physical Exam:
.
Course
Orders/Labs/Results
Orders:
Orders
02/01/25
Electrocardiogram (*1) Stat
Reason for Study: Chest Pain
Comment: DONE
02/01/25 05:25
CT Cervical Spine W/o Iv Contr Urgent
Comment:
Reason For Exam: fall down steps
CT Chest W/o Iv Contrast Urgent
Comment: changed to w/o per attending
Reason For Exam: fall
CT Facial Bones W/o Iv Contras Urgent
Comment:
Reason For Exam: fall down steps
02/01/25 05:26
CT Head W/o Iv Contrast Urgent
Comment:
Reason For Exam: fall down steps
02/01/25 05:27
Tib/Fib, Right 2 View [CR Leg Tibia/fibula Right 2 Vw] Urgent
Comment:
Reason For Exam: fall
02/01/25 06:12
CBC/With Diff [Complete Blood Count/With Diff] Urgent
CMP [Comprehensive Metabolic Panel] Urgent
PT/INR [Prothrombin Time] Urgent
02/01/25 07:24
Foot, Right 3 View [CR Foot - Right Min 3 Views] Urgent
Comment:
Reason For Exam: foot pain
Abnormal Lab Results
02/01/25
06:12
RBC 4.01 L 10^6/uL
(4.20-5.40)
Hct 35.9 L %
(37.0-47.0)
Abs Immat Gran (auto) 0.1 H 10^3/uL
(0-0.05)
Absolute Neuts (auto) 7.1 H 10^3/uL
(1.4-6.5)
Absolute Monos (auto) 0.7 H 10^3/uL
(0.1-0.6)
Immature Gran % 1.2 H %
(0-0.5)
Chloride 108 H mmol/L
(98-107)
BUN 18 H mg/dl
(7-17)
Total Protein 6.2 L g/dl
(6.3-8.2)
02/01/25 06:12
02/01/25 06:12
Vital Signs
Initial and Last Documented VS:
Initial Vital Signs
Temp Pulse Resp BP Pulse Ox
97.6 F 86 16 80/51 96
02/01/25 05:16 02/01/25 05:16 02/01/25 05:16 02/01/25 05:16 02/01/25 05:16
Last Documented Vital Signs
Temp Pulse Resp BP Pulse Ox
97.6 F 57 15 108/65 93
02/01/25 05:16 02/01/25 06:30 02/01/25 06:30 02/01/25 06:30 02/01/25 06:30
*Pulse Oximetry
SaO2: 93
Oxygen Mode of Delivery: Room air
Patient hypoxic: no
*Critical Care Note
Total Time (30-74mins, 75-104mins- exclusive of procedures): Not Applicable
ED Attending Note
-
Portions of this chart may have been created with voice recognition software.� Occasional wrong word or��sound alike� substitutions may have occurred due to the inherent limitations of voice recognition software.
Discharge Plan
Departure
Patient Disposition: Home (Routine Discharge)
Date of Disposition: 02/01/25
Time of Disposition: 07:28
Patient with high blood pressure during this ER visit?: Yes
Condition: Good
Discharge Problem:
Fracture of nasal bones, Fall, Closed head injury
Instructions: Head Injury in Adults (DC), Contusion (DC), Skin Abrasions (DC), BLOOD PRESSURE
Prescriptions:
No Action
duloxetine 60 MG capsule,delayed release(DR/EC)
60 mg PO BID
quetiapine [Seroquel XR] 400 MG tablet extended release 24 hr
400 mg PO HS
lovastatin 20 MG tablet
20 mg PO DAILY
pantoprazole 40 MG tablet,delayed release (DR/EC)
40 mg PO DAILY
clonazepam 1 MG tablet
1 mg PO QID
Patient Comments:
10/04/2023: last filled 09/22/23, 120 tabs for 30 days from [facility]
benzonatate 200 mg capsule
200 mg PO TIDPRN PRN (Reason: cough)
metoprolol tartrate 50 mg tablet
25 mg PO BID
levalbuterol HCl 1.25 mg/3 mL Solution For Nebulization
1.25 mg INHALATION R Q8HPRN PRN (Reason: sob/wheezing)
levalbuterol tartrate [Xopenex HFA] 45 mcg/actuation Hfa Aerosol Inhaler
2 inh INHALATION R Q8HPRN PRN (Reason: sob/wheezing)
furosemide 20 mg Tablet
20 mg PO DAILY Qty: 30 0RF
tamsulosin [Flomax] 0.4 mg capsule
0.4 mg PO HS Qty: 30 0RF
aspirin 81 mg Tablet,Delayed Release (Dr/Ec)
81 mg PO DAILY
potassium chloride 20 mEq tablet,ER particles/crystals
20 meq PO DAILY
levothyroxine 112 mcg tablet
112 mcg PO DAILY
prednisone 10 mg tablet
10 mg PO DIRECTED Qty: 30 0RF
Rx Instructions:
take 50mg x 2 days, 40mg x 2 days, 30mg x 2 days, 20mg x 2 days, 10mg x 2 days
guaifenesin 600 mg Tablet Extended Release 12hr
600 mg PO Q12 Qty: 10 0RF
doxycycline hyclate 100 mg Capsule
100 mg PO Q12 Qty: 6 0RF
budesonide-formoterol [Symbicort] 160-4.5 mcg/actuation HFA aerosol inhaler
2 puff INHALATION R BID Qty: 10.2 0RF
Referrals:
Iker Mcclure MD [Active, Plastic Surgery] - Call in 1-3 days for appt
Demi Ramirez MD [Family Provider, Family Practice]
Hector Butt MD [Active, Otology]
Interventions
Interventions:
*Risk Screen - Suicide Last Done: 02/01/25 05:19
*General Assessment Last Done: 02/01/25 05:19
*ED COVID-19 Vaccine History Last Done: 02/01/25 05:19
ED-Musculoskeletal Assessment Last Done: 02/01/25 05:31
ED- Neurological Assessment Last Done: 02/01/25 05:31
ED-Skin Assessment Last Done: 02/01/25 05:31
Discharge Date and Time
Print Language: SLOVAK
== END 2025-02-01 09:12 | disposition home or self-care (01) ==
LOC: EMR 05:13
PROVIDERS: EMERGENCY PHYSICIAN Student in an Organized Health Care Education/Training Program; FAMILY PHYSICIAN Family Medicine
DX: S02.2XXA Fracture of nasal bones, initial encounter for closed fracture (principal); S09.90XA Unspecified injury of head, initial encounter; S80.01XA Contusion of right knee, initial encounter; S92.351A Displaced fracture of fifth metatarsal bone, right foot, initial encounter for closed fracture; W10.9XXA Fall (on) (from) unspecified stairs and steps, initial encounter; Z87.891 Personal history of nicotine dependence
CPT/HCPCS: 99285; 29515; 70450; 70486; 71250; 72125; 73590; 73630; 80053; 85025; 85610; 93005

== ENCOUNTER 2025-02-15 17:38 | Emergency (ER) | payer BC, MEDICARE, SELFPAY ==
[2025-02-15] VITALS (9 sets, daily range): BP systolic 96–124; BP diastolic 65–80; PULSE 68–75; BMI 33.8
[2025-02-15 18:15] LABS: Hematocrit 31.3 % (37.0-47.0); Hemoglobin 10.3 g/dL (12.0-16.0); Mean Corp Hgb Conc. 32.9 g/dL (33.0-37.0); Mean Corpuscular Volume 93.7 fL (81.0-99.0); Nucleated Red Blood Cells % 0 %; Platelet Count 211 10^3/uL (130-400); Red Cell Dist. Width 14.4 % (11.5-14.5)
[2025-02-15 18:25] LABS: INR 0.99; PT 13.4 Sec (11.4-14.6)
--- NOTE | 2025-02-15 18:25 | ED.GENMED ---
History of Present Illness
General
Chief Complaint: Chest Problem
Source: patient and records
Exam Limitations: none
Time Seen by Provider: 02/15/25 18:24
History of Present Illness
History of Present Illness:
69yoF with a history of hypertension, hyperlipidemia, CHF, asthma, hypothyroidism, and SVT s/p ablations presenting for evaluation of multiple complaints. Patient had a fall down the steps on 01/27/2025. She was seen in the ED on 02/01 for
evaluation. Imaging revealed nasal bone fractures, right fifth metatarsal fracture as well as a minimally displaced fracture of the upper portion of the manubrium. Patient is currently in a walking boot and has seen orthopedics since discharge.
She has had several episodes of dizziness upon standing over the past few days. She states her heart will race and she will feel lightheaded when she stands up. She denies any shortness of breath. She is experiencing chest wall pain and that is
severe and keeps her up at night. Patient is very frustrated because she was not told about her sternal fracture at her last ED visit. She has been taking ibuprofen for pain but this is not providing much relief. She is also requesting bilateral
knee x-rays and right wrist x-rays as these areas have been hurting her since the fall.
Past History
Past History
ED Past Medical History: Arrthythmia (SVT), Asthma, CHF, COPD, GERD, HTN, Hypercholesterolemia, Hypothyroidism, Psychiatric (Anxiety, Depression) and Other (RA,PE, chronic pain syndrome-narcotic dependent. Osteoarthritis. PNA, Sleep apnea, Co2
retention, Urinary retention, PNA)
ED Past Surgical History: Cardiac (Cardiac ablation X 3), , Orthopedic (Right and left total knee replacement, ), Urological (Bladder lift) and Other (bladder lift)
Social History
Tobacco: Former smoker
Alcohol: None
Personal:
Living: with family
Employment: Disabled
Family History
Family History: Other (Noncontributory)
Phy Exam
General Physical Exam
General Presentation: well appearing and no apparent distress
General Skin: warm and dry
General Habitus: elderly
General Mental: alert
ENT Exam
ENT Exam: other (Healing periorbital ecchymosis)
Cardiovascular Exam
Cardiovascular Exam: regular rate/rhythm
Pulmonary Exam
Pulmonary Exam: lungs clear, no respiratory distress, no rales, no crackles, no rhonchi, no wheezing and other (Ecchymosis noted to anterior chest wall with tenderness)
Gastrointestinal Exam
Gastrointestinal Exam: normal bowel sounds, non tender, soft, no pulsatile mass and non distended
Izzy Coma Scale
Eye Opening: Spontaneous
Verbal Response: Oriented
Motor Response: Obeys Commands
GCS Total Score: 15
Musculoskeletal Exam
Musculoskeletal Exam: other (Ecchymosis and tenderness noted to both knees, R>L. R ankle in walking boot.)
Skin Exam
Skin Exam: warm/dry and other (Ecchymosis noted to L upper arm with palpable firmness. )
Psychiatric Exam
Psychiatric Exam: normal mood/affect
Course
Orders/Labs/Results
Orders:
Orders
02/15/25 17:52
Electrocardiogram (*1) Urgent
Reason for Study: Chest Pain
EKG- Treatment ONCE
02/15/25 18:04
Type And Crossmatch [Type+Screen] Urgent
Complete Blood Count/With Diff Urgent
Comprehensive Metabolic Panel Urgent
PTT Urgent
Prothrombin Time Urgent
Troponin I Urgent
02/15/25 18:42
Cardiac Monitoring- Treatment ONCE
Oxycodone/Acetaminophen [Percocet 5/325] 1 tablet PO NOW STA
CR Knee - Left 4 Or More View* Urgent
Comment:
Reason For Exam: injury, pain
CR Knee- Right 4 Or More View* Urgent
Comment:
Reason For Exam: injury, pain
CR Wrist - Right Min 3 Views Urgent
Comment:
Reason For Exam: injury, pain
Venous Doppler Upr Ext Left [US Periph Venous UPPER Ext LT] Urgent
Comment:
Reason For Exam: L upper arm swelling
02/15/25 18:46
Orthostatic VS- Treatment ONCE
02/15/25 19:12
0.9% Sodium Chloride 500 ml [Nss] 500 ml IV BOLUS
Abnormal Lab Results
02/15/25
18:04
RBC 3.34 L 10^6/uL
(4.20-5.40)
Hgb 10.3 L g/dL
(12.0-16.0)
Hct 31.3 L %
(37.0-47.0)
MCHC 32.9 L g/dL
(33.0-37.0)
Lymphocytes % 19.0 L %
(20.5-51.1)
Total Protein 5.7 L g/dl
(6.3-8.2)
Albumin 3.3 L g/dl
(3.5-5.0)
02/15/25 18:04
02/15/25 18:04
Vital Signs
Initial and Last Documented VS:
Initial Vital Signs
Temp Pulse Resp BP Pulse Ox
98.2 F 86 18 101/72 97
02/15/25 17:47 02/15/25 17:47 02/15/25 17:47 02/15/25 17:47 02/15/25 17:47
Last Documented Vital Signs
Temp Pulse Resp BP Pulse Ox
98.2 F 64 18 107/80 94
02/15/25 17:47 02/15/25 22:15 02/15/25 17:47 02/15/25 22:01 02/15/25 22:15
MDM/Problems Addressed
Differential Diagnosis Includes:
69yoF here with ongoing chest wall since a fall 2.[address] on 02/01 showed a fractured manubrium. Also c/o intermittent dizzy episodes with standing. No falls since last ED visit. No SOB or syncope. VSS. She is non-toxic appearing.
There is healing ecchymosis noted to face, anterior chest wall, L arm, and bilateral knees. Differential diagnosis includes but is not limited to: pain from sternal fracture, consider cardiac chest pain although less likely, dehydration, orthostatic
hypotension
Initial ED plan: Triage EKG shows NSR without ischemic changes. Cardiac labs in process. Will check orthostatics, venous duplex of LUE, bilateral knee x-rays, and right wrist x-rays. Percocet for pain.
*Pulse Oximetry
SaO2: 97
Oxygen Mode of Delivery: Room air
Patient hypoxic: no (97%)
*EKG
Interpreted by ED Provider?: Yes
EKG Intrepretation Date: 02/15/25
Heart Rate: 81
Rate: normal
Rhythm: sinus
[place]: normal axis
Interval: normal interval
QRS Pattern: normal QRS
Ischemia: no ischemia
*Critical Care Note
Total Time (30-74mins, 75-104mins- exclusive of procedures): Not Applicable
Update Note
Update Note:
Labs show anemia with a hemoglobin of 10.3. Patient denies any hematochezia or melena and does have a known history of anemia. Labs otherwise unremarkable including normal troponin. X-rays negative for fractures. Venous duplex shows findings
consistent with a superficial thrombophlebitis in the left cephalic vein. Orthostatic vital signs are positive. She dropped from 124 systolic sitting to 96 standing. IV fluid bolus given. No indication for hospitalization and patient is eager to
be discharged. Suspect chest pain is related to her known sternal fracture. Will provide prescription for oxycodone for breakthrough pain. Advised close follow-up with PCP and ED return precautions reviewed. Patient discharged in stable
condition.
ED Attending Note
-
Portions of this chart may have been created with voice recognition software.� Occasional wrong word or��sound alike� substitutions may have occurred due to the inherent limitations of voice recognition software.
Discharge Plan
Departure
Patient Disposition: Home (Routine Discharge)
Date of Disposition: 02/15/25
Time of Disposition: 22:29
Patient with high blood pressure during this ER visit?: No
Discharge Problem:
Closed fracture of sternum, Superficial thrombophlebitis of left upper extremity, Orthostatic hypotension
Instructions: Superficial vein phlebitis and thrombosis, Sternal Fracture (DC)
Prescriptions:
New
oxycodone 5 mg tablet
5 mg PO Q6H PRN (Reason: Pain) Qty: 12 0RF
No Action
duloxetine 60 MG capsule,delayed release(DR/EC)
60 mg PO BID
quetiapine [Seroquel XR] 400 MG tablet extended release 24 hr
400 mg PO HS
lovastatin 20 MG tablet
20 mg PO DAILY
pantoprazole 40 MG tablet,delayed release (DR/EC)
40 mg PO DAILY
clonazepam 1 MG tablet
1 mg PO QID
Patient Comments:
10/04/2023: last filled 09/22/23, 120 tabs for 30 days from [facility]
benzonatate 200 mg capsule
200 mg PO TIDPRN PRN (Reason: cough)
metoprolol tartrate 50 mg tablet
25 mg PO BID
levalbuterol HCl 1.25 mg/3 mL Solution For Nebulization
1.25 mg INHALATION R Q8HPRN PRN (Reason: sob/wheezing)
levalbuterol tartrate [Xopenex HFA] 45 mcg/actuation Hfa Aerosol Inhaler
2 inh INHALATION R Q8HPRN PRN (Reason: sob/wheezing)
furosemide 20 mg Tablet
20 mg PO DAILY Qty: 30 0RF
tamsulosin [Flomax] 0.4 mg capsule
0.4 mg PO HS Qty: 30 0RF
aspirin 81 mg Tablet,Delayed Release (Dr/Ec)
81 mg PO DAILY
potassium chloride 20 mEq tablet,ER particles/crystals
20 meq PO DAILY
levothyroxine 112 mcg tablet
112 mcg PO DAILY
prednisone 10 mg tablet
10 mg PO DIRECTED Qty: 30 0RF
Rx Instructions:
take 50mg x 2 days, 40mg x 2 days, 30mg x 2 days, 20mg x 2 days, 10mg x 2 days
guaifenesin 600 mg Tablet Extended Release 12hr
600 mg PO Q12 Qty: 10 0RF
doxycycline hyclate 100 mg Capsule
100 mg PO Q12 Qty: 6 0RF
budesonide-formoterol [Symbicort] 160-4.5 mcg/actuation HFA aerosol inhaler
2 puff INHALATION R BID Qty: 10.2 0RF
Referrals:
Demi Ramirez MD [Family Provider, Family Practice]
Activity Restrictions/Additional Instructions:
Take Tylenol as needed. Take oxycodone only as needed for severe breakthrough pain. Apply warm compresses to your left upper arm.
Please follow-up with your family doctor on Tuesday. Return to the ER with any new or worsening symptoms.
Interventions
Interventions:
*Risk Screen - Suicide Last Done: 02/15/25 17:47
*General Assessment Last Done: 02/15/25 17:47
*Neglect/Abuse Screening Last Done: 02/15/25 18:26
*ED- Fall Risk Assessment Last Done: 02/15/25 18:26
*ED COVID-19 Vaccine History Last Done: 02/15/25 18:26
ED- Cardiac Assessment Last Done: 02/15/25 18:26
ED- Pulmonary Assessment Last Done: 02/15/25 18:26
Discharge Date and Time
Print Language: URUGUAYAN
[2025-02-15 18:26] LABS: APTT 24.9 Sec (23.4-35.0)
[2025-02-15 18:30] LABS: ALT (SGPT) 11 U/L (0-35); AST (SGOT) 14 U/L (14-36); Albumin 3.3 g/dl (3.5-5.0); Alkaline Phosphatase 91 U/L (38-126); Blood Urea Nitrogen 13 mg/dl (7-17); Calcium 8.9 mg/dl (8.4-10.2); Carbon Dioxide 29 mmol/L (22-30); Chloride 106 mmol/L (98-107); Estimated Creatinine Clearance 78 ml/min; Glucose 92 mg/dl (70-99); Potassium 4.3 mmol/L (3.5-5.1); Sodium 136 mmol/L (135-145); Total Protein 5.7 g/dl (6.3-8.2); eGFR > 60.00
[2025-02-15 18:42] LABS: Troponin I < 0.012 ng/ml
[2025-02-15] MEDS: PERCOCET 5/325 1 TABLET PO (18:46)
[2025-02-15] MEDS: NSS 500 IV (20:07)
== END 2025-02-15 22:38 | disposition home or self-care (01) ==
LOC: EMR 17:38
PROVIDERS: Student in an Organized Health Care Education/Training Program; EMERGENCY PHYSICIAN Emergency Medicine; FAMILY PHYSICIAN Family Medicine
DX: S22.20XA Unspecified fracture of sternum, initial encounter for closed fracture (principal); I82.612 Acute embolism and thrombosis of superficial veins of left upper extremity; W10.9XXA Fall (on) (from) unspecified stairs and steps, initial encounter; I11.0 Hypertensive heart disease with heart failure; I50.9 Heart failure, unspecified; E03.9 Hypothyroidism, unspecified; E78.00 Pure hypercholesterolemia, unspecified; I95.1 Orthostatic hypotension; Z87.891 Personal history of nicotine dependence; G47.30 Sleep apnea, unspecified; D64.9 Anemia, unspecified
CPT/HCPCS: 99285; 96360; 73110; 73564; 80053; 84484; 85025; 85610; 85730; 86850; 86900; 86901; 93005; 93971